=== PATIENT | female | born 1960 | race Caucasian/White ===

== ENCOUNTER 2018-07-05 22:14 | Emergency (ER) | payer OTHER ==
--- NOTE | 2018-07-05 22:23 | PDOC ---
History of Present Illness - General Chief Complaint: Injury Stated Complaint: FELL HITTING HEAD ON GROUND Time Seen by Provider: 07/05/18 22:15 History Source: Patient Exam Limitations: No Limitations - History of Present Illness Initial Comments: 07/05/18 22:19 58 yo F presenting to the ER s/p fall via EMS Pt was exiting [employer] and tripped and fell She fell forward striking her head No LOC, No amnesia Last tetanus shot within the last 10 years PMH: HTN PSH: Meds: Valsartan ALL: Percocet Social: former smoker, no drugs no current tobacco use FH: non contributory GENERAL/CONSTITUTIONAL: No: weakness, loss of appetite. HEAD, EYES, EARS, NOSE AND THROAT: No: change in vision CARDIOVASCULAR: No: chest pain, lightheadedness, palpitations, syncope RESPIRATORY: No: cough, shortness of breath, wheezing, hemoptysis, stridor. GASTROINTESTINAL: No: nausea, vomiting, diarrhea, abdominal cramping, rectal bleeding, constipation. GENITOURINARY: No: dysuria, hematuria, frequency, urgency, flank pain. MUSCULOSKELETAL: No: back pain, neck pain, joint pain, muscle swelling or pain SKIN AND BREASTS: No: lesions, pallor, rash or easy bruising. NEUROLOGIC: No: headache, vertigo, paresthesias, weakness ENDOCRINE: No: unexplained weight gain or loss HEMATOLOGIC/LYMPHATIC: No: anemia, easy bleeding, swelling nodes. GENERAL: The patient is in no acute distress. HEAD: (+) right frontal laceration/head trauma EYES: PERRLA, EOMI, sclera anicteric, conjunctiva clear. ENT: Ears normal, nares patent, oropharynx clear without exudates. Moist mucous membranes. NECK: Normal range of motion, supple without midline tenderness LUNGS: Breath sounds equal, clear to auscultation bilaterally. No wheezes, and no crackles. HEART:Regular rate and rhythm, normal S1 and S2 without murmur, rub or gallop. ABDOMEN: Soft, nontender, normoactive bowel sounds. No guarding, no rebound. EXTREMITIES: Normal range of motion, no edema. No clubbing or cyanosis. No erythema, or tenderness. NEUROLOGICAL: Cranial nerves II through XII grossly intact. Normal speech. No focal neurological deficits. MUSCULOSKELETAL: Back non-tender to palpation SKIN: 3 lacerations noted laceration #1 - 3.o cm (superior) laceration #2 - 2.2 cm (into the eyebrow) laceration #3 - 0.5cm lateral to the right eye, vertically oriented) 07/05/18 23:41 Past History - Past Medical History Allergies/Adverse Reactions: Allergies Allergy/AdvReac Type Severity Reaction Status Date / Time acetaminophen [From Percocet] Allergy Verified 07/05/18 22:16 oxycodone HCl [From Percocet] Allergy Verified 07/05/18 22:16 Home Medications: Ambulatory Orders Valsartan [Diovan] 80 mg PO DAILY 11/13/12 Cephalexin [Keflex] 500 mg PO Q6H #20 capsule 07/05/18 HTN: Yes - Surgical History Abdominal Surgery: Yes - Suicide/Smoking/Psychosocial Hx Smoking Status: Yes Smoking History: Current every day smoker Number of Cigarettes Smoked Daily: 2 Hx Alcohol Use: No Drug/Substance Use Hx: No Substance Use Type: None Procedures - Laceration/Wound Repair Right Face Wound Length: 2.6 to 5.0 cm Wound Explored: clean Wound's Depth, Shape: into muscle, linear Irrigated w/ Saline: Yes Betadine Prep: No Anesthesia: 2% Lidocaine Amount of Anesthetic (ccs): 4 Wound Debrided: minimal Wound Repaired With: Sutures Suture Size/Type: 5:0 Number of Sutures: 11 Layer Closure: No Sterile Dressing Applied: Yes Splint Applied: No Sling Applied: No Medical Decision Making - Medical Decision Making 07/05/18 23:35 CT head negative Will discharge on Keflex *DC/Admit/Observation/Transfer Diagnosis at time of Disposition: Laceration - Discharge Dispostion Disposition: HOME Condition at time of disposition: Stable Decision to Admit order: No - Prescriptions Prescriptions: Cephalexin [Keflex] 500 mg PO Q6H #20 capsule - Referrals - Patient Instructions Printed Discharge Instructions: DI for Laceration Repair -- Simple Additional Instructions: Thank your for coming to the ER today I am so sorry that you have this laceration your head CT was negative Good wound care and follow-up are essential for proper healing, less scarring, and prevention of infection. Home Care: 1. Stitches (sutures) or vadim that require removal: It is acceptable to wash gently starting on Thursday. After this, keep it clean and dry. Apply antibiotic ointment and a bandage twice a day. Stitches/vadim on the face/ head should be removed in 7 days. This can be done in your doctors office. 2. Please take Keflex every 6 hours to prevent an infection Call your doctor or return to the emergency department if worse or: 1. The wound opens or bleeds 2. Wound redness, swelling, or pus drainage occurs. 3. Fever occurs. 4. Pain worsens. - Post Discharge Activity
[2018-07-05 22:43] VITALS: BP 147/97; PULSE 74; TEMP 98.3; BMI 20.3
[2018-07-05] MEDS ORDERED: CEPHALEXIN MONOHYDRATE 250 MG CAPSULE (FP) ONE (23:33)
[2018-07-05] MEDS ORDERED: CEPHALEXIN MONOHYDRATE 500 MG CAPSULE (UD) PO ONE (23:36)
== END 2018-07-05 23:45 | disposition home or self-care (01) ==
LOC: FER 22:14
PROC: 0HQ1XZZ Repair Face Skin, External Approach (ICD-10-PCS; principal; 2018-07-05)
DX: S01.81XA Laceration without foreign body of other part of head, initial encounter (principal); F17.210 Nicotine dependence, cigarettes, uncomplicated; I10 Essential (primary) hypertension; W18.39XA Other fall on same level, initial encounter; Y93.89 Activity, other specified; Y92.89 Other specified places as the place of occurrence of the external cause
CPT/HCPCS: 70450-TC; 99281-25